=== PATIENT | male | born 1960 | race Caucasian/White ===

== ENCOUNTER 2017-09-06 18:40 | Emergency (ER) | payer BC ==
[~2017-09-06] VITALS: Ht 188 cm; Wt 93.0 kg
[2017-09-06 18:52] VITALS: BP_SYST 163
[2017-09-06 19:16] LABS: EOSINOPHILS # (AUTO) 0.1 K/uL (0.0-0.4); EOSINOPHILS % (AUTO) 1.4 % (0.0-4.0); HEMATOCRIT 48.6 % (36-54); HEMOGLOBIN 16.1 g/dL (14.0-18.0); LYMPHOCYTES # (AUTO) 2.5 K/uL (1.0-5.5); MEAN CORPUSCULAR HEMOGLOBIN 30 pg (27-31); MEAN CORPUSCULAR HGB CONC 33 % (32-36); MEAN CORPUSCULAR VOLUME 91 fL (79.0-98.0); PLATELET COUNT (AUTO) 252 K/uL (130-430); RED BLOOD CELL COUNT(AUTO) 5.34 MIL/uL (4.2-6.2); RED CELL DISTRIBUTION WIDTH 12.3 % (9.0-15.0); WHITE BLOOD COUNT (AUTO) 10.6 K/uL (4.8-10.8)
[2017-09-06 19:27] LABS: NEUTROPHILS % (AUTO) 68.4 % (40.0-70.0)
[2017-09-06 19:28] LABS: BASOPHILS # (AUTO) 0.1 K/uL (0.0-0.2); MONOCYTES # (AUTO) 0.5 K/uL (0.0-1.0); MONOCYTES % (AUTO) 5.2 % (1.7-9.3); NEUTROPHILS # (AUTO) 7.2 K/uL (1.8-7.7)
[2017-09-06 19:56] LABS: ANION GAP 7 (5-15); CHLORIDE 102 mmol/L (98-107); SODIUM SERUM 139 mmol/L (136-145)
[2017-09-06 19:57] LABS: CALCIUM 9.3 mg/dL (8.4-11.0); CREATININE 1.03 mg/dL (0.55-1.30); GFR AFRICAN AMERICAN 95 mL/min (>90); GLUCOSE 95 mg/dL (70-99); UREA NITROGEN, BLOOD 21 mg/dL (8-21)
[2017-09-06 19:58] LABS: THYROID STIMULATING HORMONE 3.85 uIu/mL (0.34-4.82)
[2017-09-06 20:15] LABS: ALANINE AMINOTRANSFERASE 25 U/L (12-78); ALBUMIN 4.1 g/dL (3.4-4.8); ASPARTATE AMINOTRANSFERASE 12 U/L (10-37); TOTAL BILIRUBIN 0.3 mg/dL (0.0-1.0)
[2017-09-06 20:27] LABS: PROTHROMBIN TIME 10.5 SECS (9.5-12.5)
[2017-09-06 20:53] VITALS: BP_SYST 137
== END 2017-09-06 20:50 | disposition home or self-care (01) ==
LOC: SED 18:40
DX: I10 Essential (primary) hypertension (principal); F17.200 Nicotine dependence, unspecified, uncomplicated
CPT/HCPCS: 36415; 80053; 84443-TC; 84484; 85025; 85610-TC; 85730-TC; 93005; 99285